=== PATIENT | female | born 1995 | race American Indian/Alaskan Native ===

== ENCOUNTER 2017-04-08 20:59 | Emergency (ER) | payer SELFPAY ==
[2017-04-08] MEDS ORDERED: ASPIRIN PO ONE (21:21)
[2017-04-08 21:45] LABS: Basophils % (Auto) 0.7 % (0.0-1.8); Eosinophils # (Auto) 0.1 K/mm3 (0.0-0.4); Eosinophils % (Auto) 1.3 % (0.0-4.3); Hematocrit 39.4 % (30.3-42.9); Hemoglobin 12.5 gm/dl (10.1-14.3); Lymphocytes # (Auto) 2.2 K/mm3 (1.2-5.4); Lymphocytes % (Auto) 42.4 % (13.4-35.0); Mean Corpuscular HGB Conc 32 % (30-34); Mean Corpuscular Hemoglobin 26 pg (28-32); Mean Corpuscular Volume 83 fl (79-97); Monocytes # (Auto) 0.3 K/mm3 (0.0-0.8); Monocytes % (Auto) 6.2 % (0.0-7.3); Platelet Count 262 K/mm3 (140-440); Red Blood Count 4.75 M/mm3 (3.65-5.03); Red Cell Distribution Width 14.3 % (13.2-15.2)
[2017-04-08 22:02] LABS: BUN/Creatinine Ratio 10; Blood Urea Nitrogen 9 mg/dL (7-17); Calcium 8.7 mg/dL (8.4-10.2); Hemolysis Index 6
[2017-04-08 22:46] LABS: HCG Qualitative,Urine Negative (Negative)
[2017-04-09] MEDS ORDERED: MOTRIN PO ONE (02:16)
--- NOTE | 2017-04-09 03:46 | Emergency Department Report ---
HPI - General Chief Complaint: Chest Pain Time Seen by Provider: 04/09/17 03:28 - [facility] HPI: Room 18 The patient is a 21-year-old female presenting with a chief complaint of hemoptysis. Patient states she awakened this morning with a cough productive of sputum with streaks of blood. The patient's initial set of headache and rhinorrhea. Patient denies any fevers at home. Patient states she is also suffer from hidradenitis in her axilla and on the breasts for approximately one year. The patient states she took a Motrin earlier and now feels "good." Location: [See above] Duration: [See above] Quality: Headache Severity: Currently 0/10 Modifying factors: [see above] Context: [see above] Mode of transportation: Unknown ED Past Medical Hx - Past Medical History Previous Medical History?: No - Surgical History Past Surgical History?: No - Family History Family history: no significant - Social History Smoking Status: Former Smoker (none 2 weeks) Substance Use Type: None (denies illicit drug use) - Medications Home Medications: Home Medications Medication Instructions Recorded Confirmed Last Taken Type Amoxicillin 500 mg PO BID #14 capsule 04/09/17 Unknown Rx Benzonatate [Tessalon Perle] 100 mg PO TID PRN #30 capsule 04/09/17 Unknown Rx Ibuprofen [Motrin] 800 mg PO Q8HR PRN #20 tablet 04/09/17 Unknown Rx ED Review of Systems ROS: Stated complaint: HEADACHE,VOMITING Other details as noted in HPI Constitutional: denies: fever Respiratory: cough, other (hemoptysis) Skin: lesions Neurological: headache Physical Exam - Physical Exam Vital Signs: Vital Signs 04/08/17 21:16 Temperature 98.5 F Pulse Rate 66 Respiratory 16 Rate Blood Pressure 129/86 O2 Sat by Pulse 100 Oximetry Physical Exam: GENERAL: The patient is well-developed well-nourished female lying on stretcher using cellphone not appearing to be in acute distress. [] HEENT: Normocephalic. Atraumatic. Extraocular motions are intact. Patient has moist mucous membranes. NECK: Supple. No meningitic signs are noted. Trachea midline CHEST/LUNGS: Clear to auscultation. There is no respiratory distress noted. HEART/CARDIOVASCULAR: Regular. There is no tachycardia. There is no gallop rub or murmur. ABDOMEN: Abdomen is soft, nontender. Patient has normal bowel sounds. There is no abdominal distention. SKIN: There is no rash. There is no edema. There is no diaphoresis. There are subcutaneous nodules present in the left axilla and under the left breast without overlying evidence of erythema or infection NEURO: The patient is awake, alert, and oriented. The patient is cooperative. The patient has no focal neurologic deficits. The patient has normal speech. Cranial nerves II through XII grossly intact, no drift MUSCULOSKELETAL: There is no evidence of acute injury. ED Course Vital Signs 04/08/17 21:16 Temperature 98.5 F Pulse Rate 66 Respiratory 16 Rate Blood Pressure 129/86 O2 Sat by Pulse 100 Oximetry ED Medical Decision Making - Lab Data Result diagrams: 04/08/17 21:31 04/08/17 21:31 Laboratory Tests 04/08/17 04/08/17 04/08/17 21:31 21:31 22:15 WBC 5.3 RBC 4.75 Hgb 12.5 Hct 39.4 MCV 83 MCH 26 L MCHC 32 RDW 14.3 Plt Count 262 Lymph % (Auto) 42.4 H Jennings % (Auto) 6.2 Eos % (Auto) 1.3 Baso % (Auto) 0.7 Lymph # 2.2 Jennings # 0.3 Eos # 0.1 Baso # 0.0 Seg Neutrophils % 49.4 Seg Neutrophils # 2.6 D-Dimer Sodium 141 Potassium 3.9 Chloride 101.4 Carbon Dioxide 26 Anion Gap 18 BUN 9 Creatinine 0.9 Estimated GFR > 60 BUN/Creatinine Ratio 10 Glucose 85 Calcium 8.7 Troponin T < 0.010 Urine HCG, Qual Negative 04/09/17 04/09/17 03:51 03:51 WBC RBC Hgb Hct MCV MCH MCHC RDW Plt Count Lymph % (Auto) Jennings % (Auto) Eos % (Auto) Baso % (Auto) Lymph # Jennings # Eos # Baso # Seg Neutrophils % Seg Neutrophils # D-Dimer 135.00 Sodium Potassium Chloride Carbon Dioxide Anion Gap BUN Creatinine Estimated GFR BUN/Creatinine Ratio Glucose Calcium Troponin T < 0.010 Urine HCG, Qual - EKG Data -: EKG Interpreted by Tx EKG shows normal: sinus rhythm Rate: bradycardia (55 bpm) - EKG Data When compared to previous EKG there are: previous EKG unavailable Interpretation: nonspecific ST-T wave iván (T-wave inversion in lead V2) - Radiology Data Radiology results: image reviewed (chest x-ray) interpreted by me: Chest x-ray-no focal infiltrate, no pneumothorax - Differential Diagnosis bronchitis, PE, tuberculosis, folliculitis Critical care attestation.: If time is entered above; I have spent that time in minutes in the direct care of this critically ill patient, excluding procedure time. ED Disposition Clinical Impression: Acute bronchitis Disposition: TO HOME OR SELFCARE Is pt being admited?: No Does the pt Need Aspirin: No Condition: Stable Instructions: Acute Bronchitis (ED) Additional Instructions: Return to the emergency department immediately should you develop worsening symptoms, fever, inability to tolerate food or liquid or any other concerns. Prescriptions: Amoxicillin 500 mg PO BID #14 capsule Benzonatate [Tessalon Perle] 100 mg PO TID PRN #30 capsule PRN Reason: Cough Ibuprofen [Motrin] 800 mg PO Q8HR PRN #20 tablet PRN Reason: Pain Referrals: PALLAVI GONGORA MD [Staff Physician] - 3-5 Days (Dr. Gongora is a cable installation manager. Please follow up with him for further evaluation) LEO HIGGINS JR, MD [Staff Physician] - 3-5 Days (Dr. Higgins is a primary physician. Please follow up with him to be established as a patient) Time of Disposition: 05:00
--- NOTE | 2017-04-09 05:07 | XRay Report ---
FINAL REPORT EXAM: XR CHEST ROUTINE 2V HISTORY: chest pain TECHNIQUE: PA and lateral chest radiographs PRIORS: None. FINDINGS: No mediastinal shift. Cardiac silhouette is not enlarged. No pneumothorax, effusion, or focal pulmonary opacity. No acute skeletal finding. IMPRESSION: No focal pulmonary opacity.
[2017-04-09 05:21] VITALS: BP 129/63
== END 2017-04-09 05:23 | disposition home or self-care (01) ==
LOC: ED 20:59
DX: J20.9 Acute bronchitis, unspecified (principal)
CPT/HCPCS: 36415; 71046; 80048; 81025; 84484; 85025; 85379; 93005; 93010; 99285

== ENCOUNTER 2017-08-12 11:55 | Emergency (ER) | payer SELFPAY ==
[2017-08-12 12:04] VITALS: BP 128/82
--- NOTE | 2017-08-12 13:35 | Emergency Department Report ---
- General Chief complaint: Skin/Abscess/Foreign Body Stated complaint: ABSCESS ARMPIT Time Seen by Provider: 08/12/17 13:34 Source: patient Mode of arrival: Ambulatory Limitations: No Limitations - History of Present Illness Initial comments: This is a 21-year-old female nontoxic, well nourished in appearance, no acute signs of distress presents to the ED with c/o of nodular swelling to bilateral under breasts and left axilla area x1 year. Patient stated she has a history of hidradenitis and receives antibiotics and symptoms resolve. Patient denies having fever, chills, headache, nausea, vomiting, breast discharge, pus, drainage, chest pain, or shortness of breathe. Patient denies any allergies. PMH includes hidradenitis and asthma. MD complaint: abscess/boil -: days(s) (3) Severity: mild Severity scale (0 -10): 8 Quality: aching Consistency: constant Improves with: none Worsens with: none Associated symptoms: denies other symptoms Treatments Prior to Arrival: none - Related Data Previous Rx's Medication Instructions Recorded Last Taken Type Amoxicillin 500 mg PO BID #14 capsule 04/09/17 Unknown Rx Benzonatate [Tessalon Perle] 100 mg PO TID PRN #30 capsule 04/09/17 Unknown Rx Ibuprofen [Motrin] 800 mg PO Q8HR PRN #20 tablet 04/09/17 Unknown Rx Clindamycin [Clindamycin CAP] 300 mg PO Q8H 7 Days cap 08/12/17 Unknown Rx Ibuprofen [Motrin] 600 mg PO Q8H PRN #30 tablet 08/12/17 Unknown Rx Allergies Allergy/AdvReac Type Severity Reaction Status Date / Time No Known Allergies Allergy Verified 07/17/15 21:10 Abscess Boil HPI - HPI Chief Complaint: Skin/Abscess/Foreign Body Stated Complaint: ABSCESS ARMPIT Time Seen by Provider: 08/12/17 13:34 Home Medications: Previous Rx's Medication Instructions Recorded Last Taken Type Amoxicillin 500 mg PO BID #14 capsule 04/09/17 Unknown Rx Benzonatate [Tessalon Perle] 100 mg PO TID PRN #30 capsule 04/09/17 Unknown Rx Ibuprofen [Motrin] 800 mg PO Q8HR PRN #20 tablet 04/09/17 Unknown Rx Clindamycin [Clindamycin CAP] 300 mg PO Q8H 7 Days cap 08/12/17 Unknown Rx Ibuprofen [Motrin] 600 mg PO Q8H PRN #30 tablet 08/12/17 Unknown Rx Allergies/Adverse Reactions: Allergies Allergy/AdvReac Type Severity Reaction Status Date / Time No Known Allergies Allergy Verified 07/17/15 21:10 ED Review of Systems ROS: Stated complaint: ABSCESS ARMPIT Other details as noted in HPI Constitutional: denies: chills, fever Eyes: denies: eye pain, eye discharge, vision change ENT: denies: ear pain, throat pain Respiratory: denies: cough, shortness of breath, wheezing Cardiovascular: denies: chest pain, palpitations Endocrine: no symptoms reported Gastrointestinal: denies: abdominal pain, nausea, diarrhea Genitourinary: denies: urgency, dysuria, discharge Musculoskeletal: denies: back pain, joint swelling, arthralgia Skin: denies: rash, lesions Neurological: denies: headache, weakness, paresthesias Psychiatric: denies: anxiety, depression Hematological/Lymphatic: denies: easy bleeding, easy bruising ED Past Medical Hx - Past Medical History Hx Asthma: Yes - Surgical History Past Surgical History?: No - Social History Smoking Status: Current Every Day Smoker Substance Use Type: None - Medications Home Medications: Home Medications Medication Instructions Recorded Confirmed Last Taken Type Amoxicillin 500 mg PO BID #14 capsule 04/09/17 Unknown Rx Benzonatate [Tessalon Perle] 100 mg PO TID PRN #30 capsule 04/09/17 Unknown Rx Ibuprofen [Motrin] 800 mg PO Q8HR PRN #20 tablet 04/09/17 Unknown Rx Clindamycin [Clindamycin CAP] 300 mg PO Q8H 7 Days cap 08/12/17 Unknown Rx Ibuprofen [Motrin] 600 mg PO Q8H PRN #30 tablet 08/12/17 Unknown Rx ED Physical Exam - General Limitations: No Limitations General appearance: alert, in no apparent distress - Head Head exam: Present: atraumatic, normocephalic - Eye Eye exam: Present: normal appearance Pupils: Present: normal accommodation - ENT ENT exam: Present: normal exam, mucous membranes moist - Neck Neck exam: Present: normal inspection, full ROM. Absent: tenderness, meningismus, lymphadenopathy - Respiratory Respiratory exam: Present: normal lung sounds bilaterally. Absent: respiratory distress, wheezes, rales, rhonchi, stridor, chest wall tenderness, accessory muscle use, decreased breath sounds, prolonged expiratory - Cardiovascular Cardiovascular Exam: Present: regular rate, normal rhythm, normal heart sounds. Absent: irregular rhythm, systolic murmur, diastolic murmur, rubs, gallop - GI/Abdominal GI/Abdominal exam: Present: soft, normal bowel sounds. Absent: distended, tenderness, guarding, rebound, rigid, diminished bowel sounds - Rectal Rectal exam: Present: deferred - Extremities Exam Extremities exam: Present: normal inspection, full ROM, normal capillary refill - Back Exam Back exam: Present: normal inspection, full ROM - Neurological Exam Neurological exam: Present: alert, oriented X3, normal gait - Psychiatric Psychiatric exam: Present: normal affect, normal mood - Skin Skin exam: Present: warm, dry, intact, normal color. Absent: rash - Other Other exam information: circular 2 cm x 2 cm nodular swelling to bilateral under breast and left axilla region. No induration noted. No pus or drainage noted. No redness or cellulites noted. Tender to touch. ED Course Vital Signs 08/12/17 12:01 Temperature 98.8 F Pulse Rate 104 H Respiratory 16 Rate Blood Pressure 128/82 O2 Sat by Pulse 98 Oximetry - Reevaluation(s) Reevaluation #1: 08/12/17 13:57 Patient is speaking in full sentences with no signs of distress noted. ED Medical Decision Making - Medical Decision Making This is a 21-year-old female that presents with nodular swelling. Patient is stable and was examined by me. There is no signs of symptoms of abscess formation or cellulitis. Patient did state to me that this is chornic and she gets "antibiotics" and symptoms resolves. Patient is discharged with Clindamycin and Motrin. Patient was instructed to refer to Follow-up with a primary care doctor in 3-5 days for possible Mammogram or if symptoms worsen and continue return to emergency room as soon as possible. At time of discharge , the patient does not seem toxic or ill in appearance. No acute signs of distress noted. Patient agrees to discharge treatment plan of care. No further questions noted by the patient. Critical care attestation.: If time is entered above; I have spent that time in minutes in the direct care of this critically ill patient, excluding procedure time. ED Disposition Clinical Impression: Bilateral breast lump Disposition: DC- TO HOME OR SELFCARE Is pt being admited?: No Does the pt Need Aspirin: No Condition: Stable Instructions: Clindamycin (By mouth) Additional Instructions: Follow-up with a primary care doctor in 3-5 days for possible Mammogram or if symptoms worsen and continue return to emergency room as soon as possible. Prescriptions: Clindamycin [Clindamycin CAP] 300 mg PO Q8H 7 Days cap Ibuprofen [Motrin] 600 mg PO Q8H PRN #30 tablet PRN Reason: Pain Referrals: PRIMARY CARE, [Primary Care Provider] - 3-5 Days SHARMILA NOYOLA MD [Staff Physician] - 3-5 Days ALLYSSA GUPTA JR, MD [Staff Physician] - 3-5 Days [facility] [Outside] - 3-5 Days [facility] [Outside] - 3-5 Days Forms: Work/School Release Form(ED)
== END 2017-08-12 14:10 | disposition home or self-care (01) ==
LOC: ED 11:55
DX: N63.31 Unspecified lump in axillary tail of the right breast (principal); N63.32 Unspecified lump in axillary tail of the left breast; J45.909 Unspecified asthma, uncomplicated; F17.200 Nicotine dependence, unspecified, uncomplicated
CPT/HCPCS: 99282

== ENCOUNTER 2017-11-12 05:55 | Emergency (ER) | payer SELFPAY ==
[2017-11-12 06:01] VITALS: BP 131/91
--- NOTE | 2017-11-12 07:54 | Emergency Department Report ---
Abscess Boil HPI - HPI Chief Complaint: Skin/Abscess/Foreign Body Stated Complaint: ABCESS RT BREAST Time Seen by Provider: 11/12/17 07:14 Duration: Today Location: Other (right breast) History: Yes Pain, Yes Previous History, No Purulent Drainage, No Numbness, No Foreign Body, No Insect Bite HPI: This is a 22-year-old female here report that she woke up this morning to find boil under right breast. She reports painful at 3/10. Worse with palpation. No alleviating factors. No medication taken. Tetanus vaccine is up -to-date. She has had similar incident in the past. No drainage from patient. He denies any nipple discharge or change in skin of her breast. Denies any family history of breast cancer any personal history of breast cancer. Home Medications: Previous Rx's Medication Instructions Recorded Last Taken Type Amoxicillin 500 mg PO BID #14 capsule 04/09/17 Unknown Rx Benzonatate [Tessalon Perle] 100 mg PO TID PRN #30 capsule 04/09/17 Unknown Rx Ibuprofen [Motrin] 800 mg PO Q8HR PRN #20 tablet 04/09/17 Unknown Rx Clindamycin [Clindamycin CAP] 300 mg PO Q8H 7 Days cap 08/12/17 Unknown Rx Ibuprofen [Motrin 600 MG tab] 600 mg PO Q8H PRN #15 tablet 11/12/17 Unknown Rx Sulfamethoxazole/Trimethoprim 1 each PO BID 10 Days #20 tablet 11/12/17 Unknown Rx [Bactrim DS TAB] Allergies/Adverse Reactions: Allergies Allergy/AdvReac Type Severity Reaction Status Date / Time No Known Allergies Allergy Verified 07/17/15 21:10 ED Review of Systems ROS: Stated complaint: ABCESS RT BREAST Other details as noted in HPI Constitutional: denies: chills, fever Respiratory: denies: cough, shortness of breath, SOB with exertion, SOB at rest , wheezing Cardiovascular: denies: chest pain, palpitations, edema, syncope Gastrointestinal: denies: abdominal pain, nausea, diarrhea Genitourinary: dysuria. denies: discharge Musculoskeletal: denies: back pain, arthralgia Skin: other (abscess to right breast). denies: rash, lesions Neurological: denies: headache Hematological/Lymphatic: easy bruising ED Past Medical Hx - Past Medical History Previous Medical History?: Yes Hx Asthma: Yes - Surgical History Past Surgical History?: No - Family History Family history: hypertension - Social History Smoking Status: Current Every Day Smoker Substance Use Type: None - Medications Home Medications: Home Medications Medication Instructions Recorded Confirmed Last Taken Type Amoxicillin 500 mg PO BID #14 capsule 04/09/17 Unknown Rx Benzonatate [Tessalon Perle] 100 mg PO TID PRN #30 capsule 04/09/17 Unknown Rx Ibuprofen [Motrin] 800 mg PO Q8HR PRN #20 tablet 04/09/17 Unknown Rx Clindamycin [Clindamycin CAP] 300 mg PO Q8H 7 Days cap 08/12/17 Unknown Rx Ibuprofen [Motrin 600 MG tab] 600 mg PO Q8H PRN #15 tablet 11/12/17 Unknown Rx Sulfamethoxazole/Trimethoprim 1 each PO BID 10 Days #20 tablet 11/12/17 Unknown Rx [Bactrim DS TAB] ED Abscess Boil Physical Exam - Exam General: Vital signs noted. No distress. Alert and acting appropriately. Front/Back of Body, Lg (Color): 1 - BREASTS: No chest deformity, asymmetry. Normal contours. No nodules, masses, tenderness, or axillary adenopathy. No nipple discharge. Right breast: tenderness, with 2 cm erythema, nonfluctuant area lower, inner/outer quadrant . Size: 2 cm Exam: Yes Tenderness, Yes Surrounding Cellulites/Erythema, Yes Normal Neurologic Exam (alert and oriented 3, normal gait), Yes Normal Circulation ( no clubbing, cyanosis or edema to extremities. +2 pulses.), No Fluctuance, No Lymphangitis, No Heart Murmur (S1, S2) I & D Note - I & D Note I & D Note: Incision and drainage-unable to incision and draining affected area contusion and fluctuance. I discussed the patient that she needs to place warm compresses to affected sites 3-4 times a day for at least 15 minutes at a time to facilitate softening drainage. I also discussed with her that she needs to return to the emergency room in 4 days if there is not draining. ED Course Vital Signs 11/12/17 11/12/17 05:52 06:28 Temperature 97.9 F 97.9 F Pulse Rate 81 78 Respiratory 18 18 Rate Blood Pressure 131/91 131/91 O2 Sat by Pulse 97 97 Oximetry - Reevaluation(s) Reevaluation #1: 11/12/17 08:02 Patient given [place] 5/325 mg one tablet by mouth for pain. Critical care attestation.: If time is entered above; I have spent that time in minutes in the direct care of this critically ill patient, excluding procedure time. ED Medical Decision Making - Medical Decision Making This is a 22-year-old female here report that she is having an abscess to her right breast that started this morning. She has had similar incident. Patient is a smoker. She is here to be evaluated. I saw and examined the patient and she was found to have 2 cm, indurated, nonfluctuant area to inner lower quadrant of right breast. Breast exam done. The exam note for details. Patient found to have abscess cellulitis to right breast that is not ready to be drained U Jacoby fluctuance. I discussed the patient diagnosis and treatment plan and she was understanding. She is aware that she needs to place warm compresses to affected area 3-4 times a day to facilitate softening. She is also aware that she needs to return to emergency room in 4 days abscess is not draining. [place] 5/325 mg 1 by mouth given in emergency room . Patient discharged home in stable condition. Vital signs stable she is afebrile and social or family prescription for Bactrim DS and Motrin. Patient was requested a primary care physician and she said her primary care . I will refer her to some outside Medical Center and Dr. Dacia Case who is license registration examiner. I discussed with her that she will also need to have a mammogram and also discussed smoking cessation. ED Disposition Clinical Impression: Abscess of breast, Cellulitis of female breast, Nicotine abuse Disposition: DC-01 TO HOME OR SELFCARE Is pt being admited?: No Does the pt Need Aspirin: No Condition: Stable Instructions: Cellulitis (ED), Abscess (ED), Mammogram (ED), How to Stop Smoking (ED) Additional Instructions: Take antibiotic as prescribed Follow-up with your primary care physician in 4 days and if he cannot get into a primary care then he can return to the emergency room for evaluation and possible drainage of abscess. If you noticed that area it is increasing in size, redness, develop fever, nausea and there vomited , palpitation and feeling weak. Return to the emergency room [place] Keep affected area clean and dry. Followed discharge instruction on acute wound care . Take Motrin for pain Follow-up with primary care physician that I referred you to . Usual will need to have a mammogram Prescriptions: Ibuprofen [Motrin 600 MG tab] 600 mg PO Q8H PRN #15 tablet PRN Reason: Pain Sulfamethoxazole/Trimethoprim [Bactrim DS TAB] 1 each PO BID 10 Days #20 tablet Referrals: [facility] [Outside] - 2-3 Days KAYE CASE MD [Staff Physician] - 2-3 Days Forms: Work/School Release Form(ED)
[2017-11-12] MEDS ORDERED: NORCO 5/325 PO ONE (07:56)
== END 2017-11-12 08:21 | disposition home or self-care (01) ==
LOC: ED 05:55
DX: N61.1 Abscess of the breast and nipple (principal); N61.0 Mastitis without abscess; J45.909 Unspecified asthma, uncomplicated; F17.200 Nicotine dependence, unspecified, uncomplicated
CPT/HCPCS: 99282

== ENCOUNTER 2019-06-01 20:04 | Emergency (ER) | payer SELFPAY ==
[2019-06-01 20:19] VITALS: BP 124/78
--- NOTE | 2019-06-01 20:26 | Emergency Department Report ---
Chief Complaint: Shoulder Injury Stated Complaint: PAIN IN RIGHT SHOULDER Time Seen by Provider: 06/01/19 20:16 - HPI History of Present Illness: This is a 23 y.o. F. that presents to the ER with right shoulder pain x 4 days. Patient states she lift a heavy box at work and started having pain. States she is able to move arm with worsening pain to right trapeziums muscle. Denies swelling, redness, numbness or tingling, weakness, chest pain, or radiating pain. - ROS Review of Systems: ROS: Stated complaint: Right shoulder pain Other details as noted in HPI Comment: All other systems reviewed and negative - Exam Vital Signs: Vital Signs 06/01/19 20:17 Temperature 98 F Pulse Rate 89 Respiratory 18 Rate Blood Pressure 124/78 O2 Sat by Pulse 98 Oximetry Physical Exam: - Extremities Exam Extremities exam: Present: normal inspection, tenderness (Right trapezium muscle ttp, no erythema, swelling or warmth), normal capillary refill. Absent: pedal edema, joint swelling, calf tenderness All other systems reviewed and within normal limits. MSE screening note: Focused history and physical exam performed. Due to findings the following was ordered: ED Medical Decision Making - Medical Decision Making 23-year-old female complaining of right shoulder pain for 4 days. Patient is nontoxic appearing and stable. Vitals are normal. No significant past medical history. Patient in no acute distress. Given history and exam, there is low suspicion for spine fracture or acute trauma. Patient instructed of symptoms being a self-limiting. Referral to orthopedics for continued care. Start muscle relaxants. Continue taking Tylenol or NSAIDs for pain. They have been given strict return her precautions for delayed possible symptoms. Patient discharged with prompt follow-up with primary care physician. ED Disposition for MSE Clinical Impression: Right shoulder pain Qualifiers: Chronicity: acute Qualified Code(s): M25.511 - Pain in right shoulder Strain of right trapezius muscle Qualifiers: Encounter type: initial encounter Qualified Code(s): S46.811A - Strain of other muscles, fascia and tendons at shoulder and upper arm level, right arm, initial encounter Disposition: TO HOME OR SELFCARE Is pt being admited?: No Condition: Stable Instructions: Muscle Strain (ED) Prescriptions: Methocarbamol [Robaxin] 500 mg PO BID PRN #15 tablet PRN Reason: Muscle Spasm Referrals: [facility] [Outside] - 3-5 Days [facility] [Outside] - 3-5 Days [facility] [Outside] - 3-5 Days Forms: Work/School Release Form(ED) Time of Disposition: 20:34
== END 2019-06-01 20:30 | disposition home or self-care (01) ==
LOC: ED 20:04
DX: S46.811A Strain of other muscles, fascia and tendons at shoulder and upper arm level, right arm, initial encounter (principal); X58.XXXA Exposure to other specified factors, initial encounter; Y93.89 Activity, other specified; Y92.89 Other specified places as the place of occurrence of the external cause; Y99.8 Other external cause status
CPT/HCPCS: 99282

== ENCOUNTER 2020-07-26 11:52 | Emergency (ER) | payer OTHER ==
[2020-07-26 14:03] VITALS: BP 135/95
--- NOTE | 2020-07-26 16:22 | Event Note ---
ED Screening Note Date of service: 07/26/20 Time: 16:21 ED Screening Note: Patient complains of cough and shortness of breath x1 week States cough productive of yellow mucus Denies fever/chills/sweats No current shortness of breath per patient States she stopped smoking 3 weeks ago This initial assessment/diagnostic orders/clinical plan/treatment(s) is/are subject to change based on patients health status, clinical progression and re- assessment by fellow clinical providers in the ED. Further treatment and workup at subsequent clinical providers discretion. Patient/guardian urged not to elope from the ED as their condition may be serious if not clinically assessed and managed. Initial orders include: X-ray
--- NOTE | 2020-07-26 16:46 | XRay Report ---
XR chest routine 2V INDICATION / CLINICAL INFORMATION: Cough, shortness of breath. COMPARISON: None available. FINDINGS: SUPPORT DEVICES: None. HEART /PULMONARY VASCULATURE: No significant abnormality. LUNGS / PLEURA: No significant pulmonary or pleural abnormality. No pneumothorax. ADDITIONAL FINDINGS: No significant additional findings. IMPRESSION: 1. No acute findings. Signer Name: Tree Clement MD Signed: 07/26/2020 4:41 PM Workstation Name: [id number]
--- NOTE | 2020-07-26 17:22 | Emergency Department Report ---
ED General Adult HPI - General Chief complaint: Upper Respiratory Infection Stated complaint: SOB/RUNNY NOSE/COUGHING PUI?: No Time Seen by Provider: 07/26/20 16:21 Source: patient Mode of arrival: Ambulatory Limitations: No Limitations - History of Present Illness Initial comments: 21-year-old male female [facility] emerge department complaining of a 4 to 5-day history of cough congestion coryza with yellow mucus with with greenish type production. She reports no fever chills or sweats reports no nausea vomiting she reports no palpitations is having soreness to the lower chest and her thigh and abdominal region from excessive coughing she reports no loss of bowel bladder reports no diarrhea. No known contact with coronavirus -: Gradual, days(s) (5) Location: chest Radiation: non-radiation Quality: dull Consistency: constant Improves with: none Worsens with: none Associated Symptoms: cough (With yellow-colored mucus production.). denies: loss of appetite, malaise, nausea/vomiting, seizure, shortness of breath, weakness Treatments Prior to Arrival: none - Related Data Previous Rx's Medication Instructions Recorded Last Taken Type Amoxicillin 500 mg PO BID #14 capsule 04/09/17 Unknown Rx Benzonatate [Tessalon Perle] 100 mg PO TID PRN #30 capsule 04/09/17 Unknown Rx Ibuprofen [Motrin] 800 mg PO Q8HR PRN #20 tablet 04/09/17 Unknown Rx Clindamycin [Clindamycin CAP] 300 mg PO Q8H 7 Days cap 08/12/17 Unknown Rx Ibuprofen [Motrin 600 MG tab] 600 mg PO Q8H PRN #15 tablet 11/12/17 Unknown Rx Sulfamethoxazole/Trimethoprim 1 each PO BID 10 Days #20 tablet 11/12/17 Unknown Rx [Bactrim DS TAB] Ketorolac [Toradol] 10 mg PO Q6H PRN #20 tablet 03/01/18 Unknown Rx Prednisone [predniSONE 10 mg 10 mg PO .TAPER #1 tab.ds.pk 03/01/18 Unknown Rx (6-Day Pack, 21 Tabs)] Sulfamethoxazole/Trimethoprim 2 each PO BID #28 tablet 03/01/18 Unknown Rx [Bactrim DS TAB] Methocarbamol [Robaxin] 500 mg PO BID PRN #15 tablet 06/01/19 Unknown Rx Albuterol Mdi (or & Nicu Only) 1 puff IH Q4-6H PRN #1 inha 07/26/20 Unknown Rx [ProAir HFA Inhaler] Azithromycin [Zithromax] 500 mg PO QDAY #5 tablet 07/26/20 Unknown Rx Benzonatate [Tessalon Perles] 100 mg PO Q8HR #20 capsule 07/26/20 Unknown Rx predniSONE [Deltasone] 50 mg PO QDAY #5 tab 07/26/20 Unknown Rx Allergies Allergy/AdvReac Type Severity Reaction Status Date / Time No Known Allergies Allergy Verified 07/17/15 21:10 ED Review of Systems ROS: Stated complaint: SOB/RUNNY NOSE/COUGHING Other details as noted in HPI Comment: All other systems reviewed and negative ED Past Medical Hx - Past Medical History Previous Medical History?: Yes Hx Asthma: Yes Additional medical history: Hydrodenitis - Social History Smoking Status: Never Smoker Substance Use Type: None - Medications Home Medications: Home Medications Medication Instructions Recorded Confirmed Last Taken Type Amoxicillin 500 mg PO BID #14 capsule 04/09/17 Unknown Rx Benzonatate [Tessalon Perle] 100 mg PO TID PRN #30 capsule 04/09/17 Unknown Rx Ibuprofen [Motrin] 800 mg PO Q8HR PRN #20 tablet 04/09/17 Unknown Rx Clindamycin [Clindamycin CAP] 300 mg PO Q8H 7 Days cap 08/12/17 Unknown Rx Ibuprofen [Motrin 600 MG tab] 600 mg PO Q8H PRN #15 tablet 11/12/17 Unknown Rx Sulfamethoxazole/Trimethoprim 1 each PO BID 10 Days #20 tablet 11/12/17 Unknown Rx [Bactrim DS TAB] Ketorolac [Toradol] 10 mg PO Q6H PRN #20 tablet 03/01/18 Unknown Rx Prednisone [predniSONE 10 mg 10 mg PO .TAPER #1 tab.ds.pk 03/01/18 Unknown Rx (6-Day Pack, 21 Tabs)] Sulfamethoxazole/Trimethoprim 2 each PO BID #28 tablet 03/01/18 Unknown Rx [Bactrim DS TAB] Methocarbamol [Robaxin] 500 mg PO BID PRN #15 tablet 06/01/19 Unknown Rx Albuterol Mdi (or & Nicu Only) 1 puff IH Q4-6H PRN #1 inha 07/26/20 Unknown Rx [ProAir HFA Inhaler] Azithromycin [Zithromax] 500 mg PO QDAY #5 tablet 07/26/20 Unknown Rx Benzonatate [Tessalon Perles] 100 mg PO Q8HR #20 capsule 07/26/20 Unknown Rx predniSONE [Deltasone] 50 mg PO QDAY #5 tab 07/26/20 Unknown Rx ED Physical Exam - General Limitations: No Limitations General appearance: alert, in no apparent distress - Head Head exam: Present: atraumatic, normocephalic - Eye Eye exam: Present: normal appearance, PERRL, EOMI Pupils: Present: normal accommodation - ENT ENT exam: Present: normal exam, normal orophraynx, mucous membranes moist - Neck Neck exam: Present: normal inspection - Respiratory Respiratory exam: Present: normal lung sounds bilaterally. Absent: respiratory distress - Cardiovascular Cardiovascular Exam: Present: regular rate, normal rhythm. Absent: systolic murmur, diastolic murmur, rubs, gallop - GI/Abdominal GI/Abdominal exam: Present: soft, normal bowel sounds - Extremities Exam Extremities exam: Present: normal inspection - Back Exam Back exam: Present: normal inspection - Neurological Exam Neurological exam: Present: alert, oriented X3 - Psychiatric Psychiatric exam: Present: normal affect, normal mood - Skin Skin exam: Present: warm, dry, intact, normal color. Absent: rash ED Course Vital Signs 07/26/20 14:02 Temperature 98.3 F Pulse Rate 85 Respiratory 20 Rate Blood Pressure 135/95 [Right] O2 Sat by Pulse 99 Oximetry ED Medical Decision Making - Radiology Data Radiology results: report reviewed [address] [place] [id number] XRay Report Signed Patient: CHINO HANSON MR#: [id number] : 1995 Acct:[id number] Age/Sex: 24 / F ADM Date: 07/26/20 Loc: ED Attending Dr: Ordering Physician: KYAW FINCH Date of Service: 07/26/20 Procedure(s): XR chest routine 2V Accession Number(s): [id number] cc: KYAW FINCH Fluoro Time In Minutes: XR chest routine 2V INDICATION / CLINICAL INFORMATION: Cough, shortness of breath. COMPARISON: None available. FINDINGS: SUPPORT DEVICES: None. HEART /PULMONARY VASCULATURE: No significant abnormality. LUNGS / PLEURA: No significant pulmonary or pleural abnormality. No pneumothorax. ADDITIONAL FINDINGS: No significant additional findings. IMPRESSION: 1. No acute findings. Signer Name: Diane Clement MD Signed: 07/26/2020 4:41 PM Workstation Name: [id number] Transcribed By: ANA Dictated By: DIANE CLEMENT MD Electronically Authenticated By: DIANE CLEMENT MD Signed Date/Time: 07/26/201640 DD/ 40 TD/TT: - Medical Decision Making This patient presents with acute cough, most consistent with noninfectious cause. Differential diagnosis includes bronchitis, pneumonia, asthma, hyperreactive airways, allergies, . Presentation not consistent with acute bacterial pneumonia, influenza, asthma, transient airway hyperresponsiveness. Presentation not consistent with chronic causes of cough (including GERD, asthma, postnasal discharge, medication side effect, CHF, lung cancer or mass). Plan:, supportive care, reassess Critical care attestation.: If time is entered above; I have spent that time in minutes in the direct care of this critically ill patient, excluding procedure time. ED Disposition Clinical Impression: Cough Disposition: DC-01 TO HOME OR SELFCARE Is pt being admited?: No Does the pt Need Aspirin: No Condition: Stable Instructions: Cool Mist Vaporizer, Cough, Adult, Acute Bronchitis, Adult Prescriptions: predniSONE [Deltasone] 50 mg PO QDAY #5 tab Albuterol Mdi (or & Nicu Only) [ProAir HFA Inhaler] 1 puff IH Q4-6H PRN #1 inha PRN Reason: Cough Benzonatate [Tessalon Perles] 100 mg PO Q8HR #20 capsule Azithromycin [Zithromax] 500 mg PO QDAY #5 tablet Referrals: CRYSTAL LATHAM MD [Staff Physician] - 3-5 Days
== END 2020-07-26 18:13 | disposition home or self-care (01) ==
LOC: ED 11:52
DX: R05 Cough (principal); J00 Acute nasopharyngitis [common cold]; J45.909 Unspecified asthma, uncomplicated; Z79.1 Long term (current) use of non-steroidal anti-inflammatories (NSAID); Z79.2 Long term (current) use of antibiotics; Z79.899 Other long term (current) drug therapy
CPT/HCPCS: 71046